=== PATIENT | female | born 1960 | race Caucasian/White ===

== ENCOUNTER 2016-12-20 08:31 | Day surgery (SDC) | payer OTHER ==
[~2016-12-20 08:31] MED LIST: Lactated Ringers 1,000 ML IV SCH; Lidocaine 2% 5 ML SDV ONE; Midazolam 1 MG/ML 2 ML SDV ONE; Propofol 200 MG/20 ML SDV ONE; Sodium Chloride 0.9% 10 ML Syringe FLUSH PRN; Sodium Chloride 0.9% 2.5 ML Syringe FLUSH PRN; fentaNYL 250 MCG/5 ML SDV ONE
[2016-12-20] MEDS ORDERED: Fluorescein 5 ML Vial ONE (09:01)
--- NOTE | 2016-12-20 09:09 | PCM.PREANE ---
Preanesthetic Assessment - Anesthesia/Transfusion/Family Hx Anesthesia History: Prior Anesthesia Reaction Type of Anesthesia Reaction: Other (see below) (awoke with residual muscle weakness) Other Type of Anesthesia Reaction Comment: states she had a hard time waking up after c/section 28 yrs ago Family History of Anesthesia Reaction: No Transfusion History: No Prior Transfusion(s) - Review of Systems General: No Symptoms Pulmonary: No Symptoms Cardiovascular: No Symptoms Gastrointestinal: No symptoms Neurological: No Symptoms Other: Reports: Anxiety - Physical Assessment NPO Status Date: 12/19/16 O2 Sat by Pulse Oximetry: 100 Respiratory Rate: 16 Vital Signs: Last Vital Signs Temp Pulse 93 12/20/16 09:02 Resp 16 12/20/16 09:02 BP 125/95 H 12/20/16 09:02 Pulse Ox 100 12/20/16 09:02 Height: 1.52 m Weight: 63.957 kg ASA Class: 2 Mental Status: Alert & Oriented x3 Airway Class: Mallampati = 1 Dentition: Reports: Normal Dentition Lungs: Clear to auscultation, Normal respiratory effort Cardiovascular: Regular Rate, Regular Rhythm, No Murmurs - Lab Values: Laboratory Last Values WBC 6.31 K/uL (4.0-11.0) 12/20/16 08:53 RBC 4.98 M/uL (4.30-5.90) 12/20/16 08:53 Hgb 16.3 g/dL (12.0-16.0) H 12/20/16 08:53 Hct 48.6 % (36.0-46.0) H 12/20/16 08:53 MCV 97.6 fL (80.0-98.0) 12/20/16 08:53 MCH 32.7 pg (27.0-32.0) H 12/20/16 08:53 MCHC 33.5 g/dL (31.0-37.0) 12/20/16 08:53 RDW Std Deviation 45.1 fl (28.0-62.0) 12/20/16 08:53 RDW Coeff of Ladarius 13 % (11.0-15.0) 12/20/16 08:53 Plt Count 234 K/uL (150-400) 12/20/16 08:53 MPV 11.40 fL (7.40-12.00) 12/20/16 08:53 Nucleated RBC % 0.0 /100WBC 12/20/16 08:53 Nucleated RBCs # 0 K/uL 12/20/16 08:53 - Allergies Allergies/Adverse Reactions: Allergies Allergy/AdvReac Type Severity Reaction Status Date / Time No Known Allergies Allergy Verified 06/08/16 07:31 - Anesthesia Plan Pre-Op Medication Ordered: None - Acknowledgements Anesthesia Type Planned: General Anesthesia Pt an Appropriate Candidate for the Planned Anesthesia: Yes Alternatives and Risks of Anesthesia Discussed w Pt/Guardian: Yes Pt/Guardian Understands and Agrees with Anesthesia Plan: Yes Additional Comments: Pt prefers that low doses of medications be used when possible. States she is sensitive to the effects of meds. 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: Other (see below) Other OB/BYN History: menopause Psychiatric History: Reports: Anxiety Endocrine/Metabolic History: Reports: Hypothyroidism Hematologic History: Reports: Iron deficiency - Infectious Disease History Infectious Disease History: Reports: Chicken pox - Past Surgical History Head Surgeries/Procedures: Reports: None HEENT Surgical History: Reports: Oral surgery, Tonsillectomy Other HEENT Surgeries/Procedures: wisdom teeth extraction, tonsillectomy Female Surgical History: Reports: section, Tubal ligation Other Female Surgeries/Procedures: x2, tubal ligation with last c/ section - SUBSTANCE USE Smoking Status *Q: Never Smoker Second Hand Smoke Exposure: No Recreational Drug Use History: No - HOME MEDS Home Medications: Home Meds Cranberry Conc/C/Bacill Coag [Cranberry Tablet] 1 tab PO DAILY 12/15/16 [History ] Levothyroxine [Synthroid] 50 mcg PO DAILY 12/15/16 [History] Multivitamin [Multivitamins] 1 tab PO DAILY 12/15/16 [History] - CURRENT (IN HOUSE) MEDS Current Meds: Current Medications Lactated Ringer's (Ringers, Lactated) 1,000 mls @ 100 mls/hr IV ASDIRECTED CANDIDO Last Admin: 12/20/16 09:03 Dose: 100 mls/hr Sodium Chloride (Saline Flush) 10 ml FLUSH ASDIRECTED PRN PRN Reason: Keep Vein Open Sodium Chloride (Saline Flush) 2.5 ml FLUSH ASDIRECTED PRN PRN Reason: Keep Vein Open Discontinued Medications Fentanyl (Sublimaze) Confirm Administered Dose 250 mcg .ROUTE .STK-MED ONE Stop: 12/20/16 07:53 Fluorescein Sodium (Ak-Fluor) Confirm Administered Dose 5 ml .ROUTE .STK-MED ONE Stop: 12/20/16 09:02 Lidocaine (Xylocaine-Mpf 2%) Confirm Administered Dose 10 ml .ROUTE .STK-MED ONE Stop: 12/20/16 07:52 Midazolam HCl (Versed 1 Mg/Ml) Confirm Administered Dose 2 mg .ROUTE .STK-MED ONE Stop: 12/20/16 07:53 Propofol (Diprivan 20 Ml) Confirm Administered Dose 400 mg .ROUTE .STK-MED ONE Stop: 12/20/16 07:53 Preanesthetic Assessment - ANESTHESIA/TRANSFUSION/FAMILY HX Other Type of Anesthesia Reaction Comment: states she had a hard time waking up after c/section 28 yrs ago Family History of Anesthesia Reaction: No - PHYSICAL ASSESSMENT O2 Sat by Pulse Oximetry: 100 RR: 16 Vital Signs: Last Vital Signs Temp Pulse 93 12/20/16 09:02 Resp 16 12/20/16 09:02 BP 125/95 H 12/20/16 09:02 Pulse Ox 100 12/20/16 09:02 Height: 1.52 m Weight: 63.957 kg - LAB Values: Laboratory Last Values WBC 6.31 K/uL (4.0-11.0) 12/20/16 08:53 RBC 4.98 M/uL (4.30-5.90) 12/20/16 08:53 Hgb 16.3 g/dL (12.0-16.0) H 12/20/16 08:53 Hct 48.6 % (36.0-46.0) H 12/20/16 08:53 MCV 97.6 fL (80.0-98.0) 12/20/16 08:53 MCH 32.7 pg (27.0-32.0) H 12/20/16 08:53 MCHC 33.5 g/dL (31.0-37.0) 12/20/16 08:53 RDW Std Deviation 45.1 fl (28.0-62.0) 12/20/16 08:53 RDW Coeff of Ladarius 13 % (11.0-15.0) 12/20/16 08:53 Plt Count 234 K/uL (150-400) 12/20/16 08:53 MPV 11.40 fL (7.40-12.00) 12/20/16 08:53 Nucleated RBC % 0.0 /100WBC 12/20/16 08:53 Nucleated RBCs # 0 K/uL 12/20/16 08:53 - ALLERGIES Allergies/Adverse Reactions: Allergies Allergy/AdvReac Type Severity Reaction Status Date / Time No Known Allergies Allergy Verified 06/08/16 07:31
--- NOTE | 2016-12-20 10:20 | PCM.OPNOTE ---
- General Post-Op/Procedure Note Date of Surgery/Procedure: 12/20/16 Operative Procedure(s): Diagnostic hysteroscopy, directed endometrial biopsy x 2 , curretage of endometrium Pre Op Diagnosis: Abnormal uterine bleeding Post-Op Diagnosis: same Anesthesia Technique: General LMA Primary Surgeon: Kimmy Duarte Fluid Replacement, Intraop: 500 (fluid deficit 350 mL) EBL in mLs: 10 Complications: None known Condition: Good Free Text/Narrative:: Dictation [id number]
[2016-12-20] MEDS ORDERED: fentaNYL 100 MCG/2 ML SDV IVPUSH PRN (10:23)
--- NOTE | 2016-12-20 10:42 | PCM.POSTAN ---
POST ANESTHESIA ASSESSMENT - MENTAL STATUS Mental Status: alert, oriented - RESPIRATORY Respiratory Status: respiratory rate WNL, airway patent - CARDIOVASCULAR CV Status: pulse rate WNL, blood pressure stable - GASTROINTESTINAL GI Status: no symptoms - POST OP HYDRATION Hydration Status: adequate & stable
--- NOTE | 2016-12-20 11:39 | PCM48HPAN ---
Post Anesthesia Note - EVALUATION WITHIN 48HRS OF ANESTHETIC Vital Signs in Normal Range: Yes Patient Participated in Evaluation: Yes Respiratory Function Stable: Yes Airway Patent: Yes Cardiovascular Function Stable: Yes Hydration Status Stable: Yes Pain Control Satisfactory: Yes Nausea and Vomiting Control Satisfactory: Yes Mental Status Recovered: Yes
[2016-12-20 11:48] VITALS: BP 108/71
--- NOTE | 2016-12-20 14:41 | OR ---
SURGEON: Kimmy Duarte M.D. DATE OF PROCEDURE: 12/20/2016 PREOPERATIVE DIAGNOSIS: Abnormal uterine bleeding. POSTOPERATIVE DIAGNOSIS: Abnormal uterine bleeding. PROCEDURE: Diagnostic hysteroscopy with directed endometrial biopsy x2. Curettage of endometrium. ANESTHESIA: General LMA. ESTIMATED BLOOD LOSS: 10 mL. FLUIDS: 500 mL crystalloid. Fluid deficit approximately 300 mL of crystalloid. FINDINGS: Overall normal-appearing uterine cavity without any intracavitary lesions noted. DISPOSITION: The patient to PACU, stable. PROCEDURE IN DETAIL: Azra is a 56-year-old female, who has had difficulty with abnormal uterine bleeding. On evaluation, her sonohysterogram was suboptimal. Endometrium is benign. Therefore, I opted to proceed with further evaluation of the endometrial cavity via hysteroscopy. She voiced her understanding to rest of the procedure. Proper consent was obtained. The patient was taken to the operative room, where she underwent general LMA, was placed in modified dorsal lithotomy position, prepped and draped in the usual aseptic manner with the usual sterile fashion. The bladder was drained. SCDs to extremities. Time-out was performed. Speculum was introduced in the vagina. Posterior lip of cervix was grasped with an Allis clamp. Cervix was gently dilated to 5 mm. The 5 mm hysteroscope was now gently introduced using normal saline as the distention media. The uterine cavity was able to be visualized. Overall, the uterine cavity appears normal. No intracavitary lesions were identified. There was some thickening of the endometrium along the posterior mid fundal wall. Directed biopsies were performed of this region. Photographs were taken. Hysteroscope was removed and gentle curettage of endometrium was performed. Each specimens were sent to Pathology for further analysis. Hemostasis appears evident. All instruments were removed from the vagina. The sponge and instrument counts were correct x2. The patient tolerated the procedure well. She will go to PACU in stable condition. KEZIA / ABIGAIL /[id number]
== END 2016-12-20 11:50 | disposition home or self-care (01) ==
LOC: MW.SDS 08:31
PROVIDERS: ATTEND Obstetrics & Gynecology
PROC: 0UDB8ZX Extraction of Endometrium, Via Natural or Artificial Opening Endoscopic, Diagnostic (ICD-10-PCS; principal; 2016-12-20)
PROC: 0UB94ZX Excision of Uterus, Percutaneous Endoscopic Approach, Diagnostic (ICD-10-PCS; 2016-12-20)
DX: N93.9 Abnormal uterine and vaginal bleeding, unspecified (principal)
CPT/HCPCS: 36415; 57505; 58558; 84703; 85027; 88305; J2250; J3010; J7120; 00952; J2704